=== PATIENT | female | born 1975 | race Caucasian/White ===

== ENCOUNTER → 2024-02-03 12:13 | Outpatient (REF) | payer OTHER, SELFPAY | LOC: WDC 12:13 | PROVIDERS: ATTENDING PHYSICIAN Family Medicine | DX: Z12.31 Encounter for screening mammogram for malignant neoplasm of breast (principal) | CPT/HCPCS: 77063; 77067 ==

== ENCOUNTER 2024-05-06 00:34 | Observation (INO) | payer OTHER, SELFPAY ==
[2024-05-05 23:20] VITALS: BP 150/106
[2024-05-05 23:30] LABS: Glucose - Point of Care 104 mg/dl (70-99)
[2024-05-05 23:35] VITALS: BMI 25.3
[2024-05-05 23:37] VITALS: BP 151/96
--- NOTE | 2024-05-05 23:57 | ED.GENMED ---
History of Present Illness
General
Chief Complaint: Medication Reaction
Source: patient
Exam Limitations: none
Time Seen by Provider: 05/05/24 23:46
Nursing documentation reviewed up to this point in time: agreed with except (Patient inadvertently injected 50 units of insulin glargine at 10:30 PM.)
History of Present Illness
History of Present Illness:
This is a 48-year-old woman who has been maintained on Wegovy for the past 7 months having lost over 20 pounds thus far. She receives Wegovy from a compounding pharmacy, in vial form currently at 5 mg weekly which she draws up and an insulin
syringe, 0.5 mL per dose. Tonight however she inadvertently loyd up to 50 units of her cats insulin glargine and injected herself at 10:30 PM. Currently feeling fine but admits to being quite nervous due to accidental insulin injection.
She has no history of diabetes nor prediabetes. She does admit that she keeps both vials in the same area in the refrigerator.
Past History
Past History
ED Past Medical History: Psychiatric
ED Past Surgical History: Gynecological (Hysterectomy)
Social History
Tobacco: Non-smoker
Personal:
Living: with family
Employment: Employed
Family History
Family History: Other (Noncontributory)
Phy Exam
Physical Exam
Physical Exam:
GENERAL: 48-year-old woman appears her stated age, awake and alert, mildly anxious, easily communicative.
EYE: anicteric
NECK: Supple, nontender, no significant adenopathy.
ENT: oral mucosa is moist. No rhinorrhea.
CARDIAC: Regular rate and rhythm. no murmur.
LUNGS: Clear breath sounds bilaterally, no acute respiratory distress, no wheezes/rales/rhonchi
ABDOMEN: Soft, nondistended, without focal tenderness
NEUROLOGICAL: Alert and oriented x3, no focal neuro deficits. Gait is busby and steady.
SKIN: Warm and dry, normal color, skin intact. No rash.
MUSCULOSKELETAL: No C/C/E. peripheral pulses are full and equal b/l. No palpable tenderness.
PSYCH: Mildly anxious. Easily communicative.
Course
Orders/Labs/Results
Orders:
Orders
05/05/24 23:25
Accucheck Once [Bedside Glucose Monitoring-ONCE] As Directed
05/05/24 23:55
Basic Metabolic Panel Urgent
Complete Blood Count/With Diff Urgent
INT (Intravenous Needle Therapy) As Directed
05/06/24 00:15
Bedside Glucose- Treatment Q1
05/06/24 00:17
Admit/Transfer Patient As Directed
Co-Sign Provider:
Level of Care: Observation services
Assign to:: IMU- Intermediate Care
Physician / Group: hospitalist
Diagnosis: insulin overdose
Code Status As Directed
Resuscitation Status: Full Code
PRN Pain Medication Management As Directed
May give lesser potent ordered pain med per pt: Yes
preference::
Protocol:: Medication orders for pain may be administered in a
manner that supports deferring to patient preference
when the pt is:
- Requesting an ordered lesser potent pain medication.
Least to most potent pain medications are defined
as: acetaminophen < NSAID < tramadol < opioids
(morphine, oxycodone, hydromorphone).
- Requesting a lesser dose of the same medication IF
ORDERED.
- Requesting a less intrusive route of administration
if both routes are prescribed by the provider (PO <
IV).
Abnormal Lab Results
05/05/24 05/06/24 05/06/24
23:28 00:03 00:22
RBC 4.10 L 10^6/uL
(4.20-5.40)
MCH 32.9 H pg
(27.0-31.0)
POC Glucose 104 H mg/dl 21 L* mg/dl
(70-99) (70-99)
05/06/24
00:23
RBC
MCH
POC Glucose 101 H mg/dl
(70-99)
05/06/24 00:03
05/06/24 00:03
Vital Signs
Initial and Last Documented VS:
Initial Vital Signs
Temp Pulse Resp BP Pulse Ox
98 F 104 22 150/106 99
05/05/24 23:20 05/05/24 23:20 05/05/24 23:20 05/05/24 23:20 05/05/24 23:20
Last Documented Vital Signs
Temp Pulse Resp BP Pulse Ox
98 F 104 22 141/98 98
05/05/24 23:20 05/05/24 23:20 05/05/24 23:20 05/06/24 00:02 05/06/24 00:03
MDM/Problems Addressed
Differential Diagnosis Includes:
Patient presents with inadvertent self administration of long-acting insulin instead of Wegovy.
Insulin glargine initial onset of action delayed for 3 to 4 hours with lengthy duration of 24 hours.
She is at significant risk for severe hypoglycemia.
Will require acute hospitalization for frequent blood sugar checks and IV dextrose administration.
Will monitor blood sugar frequently and initiate IV D5 and half-normal saline, maintenance.
*Pulse Oximetry
Patient hypoxic: no
*Critical Care Note
Total Time (30-74mins, 75-104mins- exclusive of procedures): Not Applicable
Update Note
Update Note:
I have spoken with [facility]. No specific interventions other than frequent Accu-Cheks and IV dextrose as needed.
ED Attending Note
-
Portions of this chart may have been created with voice recognition software.� Occasional wrong word or��sound alike� substitutions may have occurred due to the inherent limitations of voice recognition software.
Discharge Plan
Departure
Patient Disposition: Admit
Date of Disposition: 05/06/24
Time of Disposition: 00:13
Admit to: IMU
Presentation/result/management discussed w/ accepting MD/DO: Hospitalist
Condition: Serious
Discharge Problem:
Unintentional poisoning by insulin
Interventions
Interventions:
*Risk Screen - Suicide Last Done: 05/05/24 23:20
*General Assessment Last Done: 05/05/24 23:35
*Neglect/Abuse Screening Last Done: 05/05/24 23:20
ED- Fall Risk Assessment Last Done: 05/05/24 23:32
*ED COVID-19 Vaccine History Last Done: 05/05/24 23:35
ED-Skin Assessment Last Done: 05/05/24 23:35
ED- Pulmonary Assessment Last Done: 05/05/24 23:35
ED-EENT Assessment Last Done: 05/05/24 23:35
[2024-05-06] VITALS (11 sets, daily range): BP systolic 95–147; BP diastolic 83–102; BMI 24.7
[2024-05-06 00:11] LABS: % Basophils 0.8 % (0-2); % Immature Granulocytes 0.3 % (0-0.5); % Lymphocytes 30.7 % (20.5-51.1); % Neutrophils 56.2 % (42.2-75.2); Absolute Basophils 0.1 10^3/uL (0-0.2); Absolute Eosinophils 0.3 10^3/uL (0-0.7); Absolute Lymphocytes 2.3 10^3/uL (1.2-3.4); Absolute Monocytes 0.6 10^3/uL (0.1-0.6); Absolute Neutrophils 4.2 10^3/uL (1.4-6.5); Hemoglobin 13.5 g/dL (12.0-16.0); Mean Corp Hgb Conc. 36.5 g/dL (33.0-37.0); Mean Corpuscular Hgb 32.9 pg (27.0-31.0); Mean Corpuscular Volume 90.2 fL (81.0-99.0); Mean Platelet Volume 8.9 fL (7.4-10.4); Nucleated Red Blood Cells % 0 %; Platelet Count 187 10^3/uL (130-400); Red Cell Dist. Width 11.9 % (11.5-14.5); White Blood Cell Count 7.5 10^3/uL (4.8-10.8)
[2024-05-06 00:24] LABS: Glucose - Point of Care 101 mg/dl (70-99)
[2024-05-06 00:24] LABS: Glucose - Point of Care 21 mg/dl (70-99)
[2024-05-06 00:25] LABS: Blood Urea Nitrogen 10 mg/dl (7-17); Calcium 9.6 mg/dl (8.4-10.2); Carbon Dioxide 26 mmol/L (22-30); Chloride 102 mmol/L (98-107); Estimated Creatinine Clearance 85 ml/min; Glucose 86 mg/dl (70-99); Potassium 3.8 mmol/L (3.5-5.1); Sodium 138 mmol/L (135-145); eGFR > 60.00
--- NOTE | 2024-05-06 00:29 | HPS.HSE ---
Family Physician
-
Family Physician: Tonya Whaley MD
Chief Complaint
-
Accidental insulin overdose
History of Present Illness
Patient is an otherwise healthy 48-year-old with no significant past medical history. She presents to the emergency department after accidentally giving herself subcutaneous insulin glargine. The patient withdrew 50 units of insulin glargine and
injected it at around 10:30 PM. She reported this to family members were instructed to come to the emergency department. Patient has no history of diabetes and is on Wegovy for weight loss. She was intending to give herself 0.5 mL of Wegovy but
ended up giving himself 0.5 mL of 100 units per meal insulin glargine which is used for a cat.
She is asymptomatic at this time with initial [id number] glucose of 104.
The rest of her labs are stable with normal CBC, blood glucose from the electrolytes was 86. Potassium 3.8
Medical History
Past Medical History
Past Medical History: Reports Other (Seasonal allergies)
Past Surgical History: Reports None
Social History
Tobacco: Non-smoker
Alcohol: Occasional
Drug: None
Personal:
Living: With Family
Employment: Employed
Family History
Family History: Not pertinent
Allergies / Home Medications
Allergies reflects when Allergies were last updated in [facility].
Home Medications with original date entered in [facility]
Allergy/Medication List:
Allergies
Allergy/AdvReac Type Severity Reaction Status Date / Time
Sulfa (Sulfonamide Allergy Itching Verified 05/05/24 23:23
Antibiotics)
Review of Systems
-
History Source: Patient
Constitutional: Reports No Symptoms
EENT: Reports No Symptoms
Respiratory: Reports No Symptoms
Cardiac: Reports No Symptoms
Abdomen/GI: Reports No Symptoms
: Reports No Symptoms
Musculoskeletal: Reports No Symptoms
Skin: Reports No Symptoms
Neurological: Reports No Symptoms
Endocrine: Reports No Symptoms
Hematologic/Lymphatic: Reports No Symptoms
Psych: Reports No Symptoms
Physical Exam
Vital Signs
Vital Signs
Temp Pulse Resp BP Pulse Ox
98 F 104 22 141/98 98
05/05/24 23:20 05/05/24 23:20 05/05/24 23:20 05/06/24 00:02 05/06/24 00:03
Physical Exam
General: Well Developed, Well Nourished, No Apparent Distress and Comfortable
HEENT: NormoCephalic, Anicteric, Moist mucous membranes and Atraumatic
Respiratory: Clear
Cardiac: S1/S2 and Regular Rhythm
Breast: Deferred by me
GI: Soft, Non Tender, Non Distended and Normal Bowel Sounds
Rectal: Deferred by Provider
Genito-urinary: Deferred by me
Musculoskeletal: No Clubbing, No Cyanosis and No Edema
Skin: Warm
Neuro: AO x 3
Hematologic/Lymphatic: No Lymphadenopathy
Psych: Calm
Laboratory Results
-
05/06/24 00:03
05/06/24 00:03
Data Reviewed
-
Lab Data: Labs Reviewed by me
Old Records: Reviewed
Impression/Plan
-
IMPRESSION:
Accidental overdose of insulin glargine
PLAN:
1. Insulin O/D - Accidently injection of 50 units of glargine injected at 10:30p. Expect onset of action at around 2:30am to last about 18 to 24 hours.
- admit to IMU obs
- fingerstick glucose q 1 hours for now
- when less than 70, start hypoglycemia protocol and start d5W at 125ml w/ fingerstick q 1 hour. Adjust fluid rate and dextrose % to get bg > 90. May need d10 as necessary
- serial exams
- non-intentional so no need for psych or 1:1
DVT PPX - SCDs
Code Status - Full Code
[2024-05-06] MEDS: D5/0.45%NACL 1000 IV (00:55)
[2024-05-06 01:08] LABS: Glucose - Point of Care 120 mg/dl (70-99)
[2024-05-06 01:40] LABS: Glucose - Point of Care 93 mg/dl (70-99)
[2024-05-06 02:40] LABS: Glucose - Point of Care 99 mg/dl (70-99)
--- NOTE | 2024-05-06 03:24 | PTCARENOTE ---
Admitted pt overnight. aaox3, pleasant. Denies pain/sob/any s/s of hypoglycemia. Checking sugars Q1h, all within 90's. Pt had D51/2NSS when arrived to floor and switched to D5W shortly after. NSR on monitor. Remains on RA. Educated pt on s/s to
report to nurses. Call ponce in reach, will monitor.
[2024-05-06 03:44] LABS: Glucose - Point of Care 77 mg/dl (70-99)
[2024-05-06] MEDS: D5W 1000 IV (04:29)
[2024-05-06 04:30] LABS: Glucose - Point of Care 75 mg/dl (70-99)
[2024-05-06 05:48] LABS: Glucose - Point of Care 71 mg/dl (70-99)
[2024-05-06 06:24] LABS: Blood Urea Nitrogen 9 mg/dl (7-17); Calcium 9.2 mg/dl (8.4-10.2); Carbon Dioxide 27 mmol/L (22-30); Chloride 104 mmol/L (98-107); Estimated Creatinine Clearance 85 ml/min; Glucose 72 mg/dl (70-99); Potassium 4.2 mmol/L (3.5-5.1); Sodium 141 mmol/L (135-145); eGFR > 60.00
[2024-05-06 06:43] LABS: Glucose - Point of Care 83 mg/dl (70-99)
[2024-05-06 08:05] LABS: Glucose - Point of Care 93 mg/dl (70-99)
[2024-05-06 08:44] LABS: Glucose - Point of Care 112 mg/dl (70-99)
--- NOTE | 2024-05-06 09:36 | PTCARENOTE ---
Rec'd pt this AM AAO x3. Hourly blood glucose monitoring in progress. Pt eating meals and drinking well. 0930 blood glucose 99. continue plan
[2024-05-06 09:44] LABS: Glucose - Point of Care 99 mg/dl (70-99)
[2024-05-06 10:40] LABS: Glucose - Point of Care 100 mg/dl (70-99)
--- NOTE | 2024-05-06 10:56 | CM ---
Patient is currently observation status. CM introduced self and role. Patient, and one of their children at bedside as well. CM explained what observation status was. Patient in agreement of signing commercial VARGAS. Copy given to patient.
Original placed on chart. Form signed at 10:40am.
--- NOTE | 2024-05-06 10:58 | CM ---
CM reviewed chart. CM introduced self and role. Patient's and child also room. Patient lives with her and three children. They live in a multi-level home with 2 steps to enter. She denied any +SDOHs. 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
She works FT. She drives and is independent. Obs letter explained to and signed by patient. Her PCP is Dr. Marcello Whaley and the pharmacy she uses is [facility] in [place]. Her will provide transportation once she is discharged from the
hospital.
ANTICIPATED DISCHARGE DISPO: Home with family when medically cleared.
[2024-05-06 11:39] LABS: Glucose - Point of Care 97 mg/dl (70-99)
[2024-05-06 12:38] LABS: Glucose - Point of Care 105 mg/dl (70-99)
--- NOTE | 2024-05-06 12:48 | PTCARENOTE ---
RTC from poison control regarding pts condition and update. Info shared with pt's permission. blood sugars continue to be stable with pt drinking sips of orange juice throughout morning plus meals and snacks. vital signs stable.
--- NOTE | 2024-05-06 13:35 | W.PN.HOSP.TC ---
Today's Communication/Plan
-
Assessment / Plan
Assessment / Plan
Physical Exam
NAD, resting comfortably in bed
Scleral anicteric
Moist mucous membranes
No JVD
CTA bilateral
Normal S1-S2 no murmurs
Soft nontender nondistended bowel sounds active
No peripheral pitting edema
Moves extremities spontaneously
AAOx3
Assessment and Plan
Insulin overdose after taking her cats long acting insulin, does not have a history of diabetes. Was not trying to hurt herself. She thought she was taking her Wegovy dosing but later noticed that it was her cats long acting Insulin
-Maintain on 5% dextrose containing fluids. If hypoglycemic again with blood glucose less than 70 increase to 10% dextrose containing fluids.
-Every hour Accu-Cheks
-Provide for regular house diet frequent snacks between meals
-Once past 24 to 36 hours and remains euglycemic may be discharged home
Anticipated Discharge: Within 24 hours
Subjective/Interval History
-
Date of Service: May 06, 2024
seen and examined. no new complaints. no acute overnight events
Objective Data
-
Labs:
Laboratory Results
05/06/24
05:37
Sodium 141
Potassium 4.2
Chloride 104
Carbon Dioxide 27
BUN 9
Creatinine 0.8
Glucose 72
Calcium 9.2
Vital Signs:
Vital Signs
Temp Pulse Resp BP Pulse Ox
98.2 F 80 12 129/89 98
05/06/24 11:05 05/06/24 04:00 05/06/24 04:00 05/06/24 04:00 05/06/24 10:38
I&O
05/05/24 05/06/24 05/07/24
06:59 06:59 06:59
Intake Total 240 / 240
Balance 240 / 240
[2024-05-06 13:46] LABS: Glucose - Point of Care 87 mg/dl (70-99)
[2024-05-06 14:44] LABS: Glucose - Point of Care 90 mg/dl (70-99)
[2024-05-06 15:45] LABS: Glucose - Point of Care 93 mg/dl (70-99)
[2024-05-06 16:46] LABS: Glucose - Point of Care 91 mg/dl (70-99)
[2024-05-06 17:37] LABS: Glucose - Point of Care 106 mg/dl (70-99)
[2024-05-06 18:43] LABS: Glucose - Point of Care 95 mg/dl (70-99)
[2024-05-06 20:45] LABS: Glucose - Point of Care 111 mg/dl (70-99)
[2024-05-06 22:55] LABS: Glucose - Point of Care 124 mg/dl (70-99)
[2024-05-07 02:45] LABS: Glucose - Point of Care 139 mg/dl (70-99)
[2024-05-07 04:57] VITALS: BMI 25.0
[2024-05-07] MEDS: D5W 1000 IV (05:01)
[2024-05-07 06:36] LABS: Glucose - Point of Care 93 mg/dl (70-99)
--- NOTE | 2024-05-07 06:43 | PTCARENOTE ---
No episodes of hypoglycemia overnight. Remains on d5 at 30ml/hr. q4h accuchecks maintained.
--- NOTE | 2024-05-07 07:00 | PTCARENOTE ---
received report from previous RN at change of shift. Pt AAOX3, denies pain. SR on telemetry heart rate in 80-90s. pulses palpable, no edema. pt on room air, sat 98%. lung sounds clear. active bowel sounds. tolerating diet. voiding in bathroom
without difficulty. pt updated on plan of care. see worklist for full nursing assessment and interventions.
--- NOTE | 2024-05-07 08:17 | W.PN.HOSP.TC ---
Addendum entered and electronically signed by Garrett Graff MD 05/07/24 14:40:
Seen and examined by me independently in collaboration with the medical instrument cable fabricator Tarik.
Lab data and imaging data reviewed.
Addendum as below :
Accidental insulin administration. No further hypoglycemia since admission. Based on the route, dose and the type of insulin wouldn't be concerned further about hypoglycemia. Medically stable for discharge home today.
Original Note:
Today's Communication/Plan
-
- Anticipated discharge today.
Assessment / Plan
Assessment / Plan
Assessment
Vale Carroll, age 48, unintentionally injected herself with 50 units (0.5 ml) of her cat's (Bink) insulin glargine at 22:30 on 05-05-24 (mistaking it for her own semaglutide 0.5 ml). Came to the hospital right away and was admitted for management
of anticipated hypoglycemia.
Impression and plan
Unintentional insulin overdose
- Started on dextrose 5%; did not require 10%.
- Q1 glucose checks showed normoglycemia.
- Regular diet; tolerated well.
- Electrolytes remained stable with no hemodynamic instability.
- Insulin should be cleared by now; okay for discharge.
History of obesity
- On semaglutide.
- Next dose 05-12-24; can continue.
Thromboprophylaxis
- Sequential compression devices
Code status
- Full.
Anticipated Discharge: Today
Subjective/Interval History
-
Date of Service: May 07, 2024
Stable overnight with no symptoms. No hypoglycemia.
Objective Data
-
Vital Signs:
Vital Signs
Temp Pulse Resp BP Pulse Ox
97.8 F 93 17 147/102 98
05/07/24 07:14 05/07/24 06:00 05/07/24 06:00 05/06/24 22:44 05/06/24 16:51
I&O
05/06/24 05/07/24 05/08/24
06:59 06:59 06:59
Intake Total 240 / 240 840 / 840
Balance 240 / 240 840 / 840
Review of Systems
-
History Source: Patient and Records
Constitutional: Reports No Symptoms
EENT: Reports No Symptoms Reported
Respiratory: Reports No Symptoms
Cardiac: Reports No Symptoms
Abdomen/GI: Reports No Symptoms
Breast: Reports No Symptoms
Genitourinary: Reports No Symptoms
Musculoskeletal: Reports No Symptoms
Skin: Reports No Symptoms
Neuro: Reports No Symptoms
Endocrine: Reports No Symptoms
Hematologic / Lymphatic: Reports No Symptoms
Allergy / Immunology: Reports No Symptoms
Physical Exam
-
General: No Apparent Distress and Comfortable
HEENT: Normocephalic, Atraumatic, Moist Mucous Membranes and Anicteric
Respiratory: Clear to Auscultation and Non Labored Respirations
Cardiac: Regular Rhythm and S1/S2
GI: Soft, Nontender and Nondistended
Genito-urinary: No Costovertebral Tender
Musculoskeletal: No Clubbing, No Cyanosis and No Edema
Skin: Warm, Dry and IV Access / Catheter Site
Neuro: Awake, Alert, Oriented and No Motor Deficits
Hematologic / Lymphatic: No Lymphadenopathy
Psych: Calm
[2024-05-07 08:40] VITALS: BP 129/95
[2024-05-07 08:53] LABS: Hematocrit 40.5 % (37.0-47.0); Hemoglobin 14.3 g/dL (12.0-16.0); Mean Corp Hgb Conc. 35.3 g/dL (33.0-37.0); Mean Corpuscular Hgb 32.9 pg (27.0-31.0); Mean Corpuscular Volume 93.3 fL (81.0-99.0); Mean Platelet Volume 8.7 fL (7.4-10.4); Platelet Count 195 10^3/uL (130-400); Red Blood Cell Count 4.34 10^6/uL (4.20-5.40); Red Cell Dist. Width 11.9 % (11.5-14.5); White Blood Cell Count 8.7 10^3/uL (4.8-10.8)
[2024-05-07 09:27] LABS: Blood Urea Nitrogen 9 mg/dl (7-17); Calcium 9.8 mg/dl (8.4-10.2); Carbon Dioxide 29 mmol/L (22-30); Chloride 101 mmol/L (98-107); Estimated Creatinine Clearance 97 ml/min; Glucose 92 mg/dl (70-99); Potassium 4.3 mmol/L (3.5-5.1); Sodium 139 mmol/L (135-145); eGFR > 60.00
[2024-05-07 10:34] LABS: Glucose - Point of Care 124 mg/dl (70-99)
[2024-05-07 10:37] VITALS: BP 125/82
--- NOTE | 2024-05-07 13:55 | W.DCSUMMARY ---
Addendum entered and electronically signed by Tarik Ring MD, Resident 05/10/24 10:06:
Patient was discharged with no medications or additional instructions as her self-limiting condition had completely resolved. She was given an educational packet about avoiding accidental overdosing.
Original Note:
Documented by User: Tarik Ring MD, Resident 05/07/24 14:04
Discharge Summary
Discharge Data
Date of Admission: 05/06/24
Date of Discharge: 05/07/24
-
Pending Results: No
Hospital Course
Primary discharge diagnosis
* Unintentional insulin overdose
Secondary discharge diagnosis
- History of obesity
Hospital course
Vale Carroll, age 48, unintentionally injected herself with 50 units (0.5 ml) of her cat's (Bink) insulin glargine at 22:30 on 05-05-24, mistaking it for her own semaglutide 0.5 ml. She came to the hospital right away and was managed for
anticipated hypoglycemia. She was started on dextrose 5% with every hour fingerstick glucose monitoring, and was provided with a regular diet. She remained normoglycemic with stable hemodynamics and electrolytes within normal limits. She remained
asymptomatic throughout the hospital stay. On the day of discharge, she was feeling good with normal vitals and blood work, and unremarkable physical exam. Please follow-up with primary within 1 week.
Discharge Plan
-
Patient Disposition: Home (Routine Discharge)
Discharge Diagnosis/Procedures: Unintentional insulin overdose
Condition: Good
Diet: No restrictions
Activity: No restrictions
Driving Restrictions: As prior to admission
Bathing Restrictions: None
Instructions: Accidental Overdose (DC)
Referrals:
Tonya Whaley MD [Family Provider] -
Discharge Orders:
Discharge Patient (As Directed); Ordered 05/07/24
Ordered By: Tarik Ring
Discharge Date and Time
Discharge Date/Time: 05/07/24 11:00
Print Language: [place]IZ[place]

Documented by User: Garrett Graff MD 05/07/24 14:38
Discharge Summary
Discharge Data
Date of Admission: 05/06/24
Date of Discharge: 05/07/24
Discharge Plan
-
Patient Disposition: Home (Routine Discharge)
Discharge Diagnosis/Procedures: Unintentional insulin overdose
Condition: Good
Diet: No restrictions
Activity: No restrictions
Driving Restrictions: As prior to admission
Bathing Restrictions: None
Instructions: Accidental Overdose (DC)
Referrals:
Tonya Whaley MD [Family Provider] -
Discharge Orders:
Discharge Patient (As Directed); Ordered 05/07/24
Ordered By: Tarik Ring
Discharge Date and Time
Discharge Date/Time: 05/07/24 11:00
Print Language: [place]IZ[place]
== END 2024-05-07 11:00 | disposition home or self-care (01) ==
LOC: IMU 00:34
PROVIDERS: Student in an Organized Health Care Education/Training Program; ADMITTING PHYSICIAN Internal Medicine; ATTENDING PHYSICIAN Internal Medicine; EMERGENCY PHYSICIAN Emergency Medicine; FAMILY PHYSICIAN Family Medicine
DX: T38.3X1A Poisoning by insulin and oral hypoglycemic [antidiabetic] drugs, accidental (unintentional), initial encounter (principal); Y92.009 Unspecified place in unspecified non-institutional (private) residence as the place of occurrence of the external cause; E66.9 Obesity, unspecified; Z68.25 Body mass index [BMI] 25.0-25.9, adult; Z88.2 Allergy status to sulfonamides; Z79.85 Long-term (current) use of injectable non-insulin antidiabetic drugs
CPT/HCPCS: 80048; 82962; 85025; 85027; 96365; 99284; G0378